=== PATIENT | female | born 1970 | race Caucasian/White ===

== ENCOUNTER 2017-12-14 13:05 | Emergency (ER) | payer MEDICAID ==
[2017-12-14 13:14] VITALS: TEMP 97.7
--- NOTE | 2017-12-14 13:50 | C.PDOC ---
History Of Present Illness 47-year-old female, presents to the emergency department with complaints of left -shoulder pain x1 week that is worse with movement. Patient notes that she carries heavy bags on that side and believes this caused the pain. No direct trauma or shortness of breath, chest pain, jaw pain or change in sensation. Patient states PMD gave her muscle relaxer and Naproxen that have not helped. No other complaints at this time. Time Seen by Provider: 12/14/17 13:32 Chief Complaint (Nursing): Upper Extremity Problem/Injury History Per: Patient History/Exam Limitations: no limitations Onset/Duration Of Symptoms: Days Current Symptoms Are (Timing): Still Present Past Medical History Reviewed: Historical Data, Nursing Documentation, Vital Signs Vital Signs: Last Vital Signs Temp 97.7 F 12/14/17 13:09 Pulse 81 12/14/17 15:13 Resp 16 12/14/17 15:13 BP 112/68 12/14/17 15:13 Pulse Ox 99 12/14/17 16:22 - Medical History PMH: Anxiety, Depression, Hypothyroidism Family History: States: No Known Family Hx - Social History Hx Alcohol Use: No Hx Substance Use: No - Immunization History Hx Tetanus Toxoid Vaccination: No Hx Influenza Vaccination: Yes (08/2017) Hx Pneumococcal Vaccination: No Review Of Systems Constitutional: Negative for: Fever Cardiovascular: Negative for: Chest Pain, Palpitations Respiratory: Negative for: Shortness of Breath Musculoskeletal: Positive for: Shoulder Pain Neurological: Negative for: Weakness, Numbness Physical Exam - Physical Exam Appears: Non-toxic, Other (uncomfortable) Skin: Warm, Dry, No Rash Head: Atraumatic, Normacephalic Eye(s): bilateral: Normal Inspection, EOMI Nose: Normal Oral Mucosa: Moist Neck: Normal, Normal ROM, Supple Lymphatic: Normal Exam Chest: Symmetrical Cardiovascular: Rhythm Regular Respiratory: Normal Breath Sounds, No Accessory Muscle Use Back: No CVA Tenderness, No Vertebral Tenderness Extremity: Tenderness, No Deformity, Other (Tenderness to palpation of left trapezius; FROM though pain aggravate passed 120 degrees) Extremity: Bilateral: Atraumatic, Normal Color And Temperature, Normal ROM Pulses: Left Radial: Normal, Right Radial: Normal Neurological/Psych: Oriented x3, Normal Speech, Normal Motor, Normal Sensation ED Course And Treatment ECG: Interpreted By Me, Viewed By Me O2 Sat by Pulse Oximetry: 99 (on RA) Pulse Ox Interpretation: Normal - Other Rad XR L shoulder X-Ray: Viewed By Me, Read By Radiologist Interpretation: No fracture or dislocation Progress Note: EKG and XR Shoulder ordered and reviewed. Patient treated with Toradol and Valium. On reassessment, patient is resting comfortably, and is in no acute distress. Patient was instructed to follow up with physician/clinic in 1-2 days for further evaluation. Disposition - Disposition Disposition: HOME/ ROUTINE Disposition Time: 14:37 Condition: STABLE Additional Instructions: Follow up with your primary medical doctor or clinic in 2-5 days for further evaluation. Take medications as prescribed. Return to the emergency department at any time if symptoms persist or worsen. Prescriptions: traMADol [Ultram] 50 mg PO Q8 #20 tab Instructions: Shoulder Pain (ED) Forms: [employer] [facility] ([place]) - Clinical Impression Clinical Impression: Shoulder pain - Scribe Statement The provider has reviewed the documentation as recorded by the Scribe (Candace Andrea) All medical record entries made by the Scribe were at my direction and personally dictated by me. I have reviewed the chart and agree that the record accurately reflects my personal performance of the history, physical exam, medical decision making, and the department course for this patient. I have also personally directed, reviewed, and agree with the discharge instructions and disposition.
[2017-12-14 15:14] VITALS: BP 112/68; PULSE 81; RESP 16
--- NOTE | 2017-12-14 15:22 | RAD ---
PROCEDURE: Radiographs of the Left Shoulder HISTORY: Pain. No history of recent/ related trauma provided COMPARISON: No prior. FINDINGS: BONES: Normal. No fracture. JOINTS: Normal. Glenohumeral and acromioclavicular joints preserved. No osteoarthritis. SOFT TISSUES: Normal. OTHER FINDINGS: None. IMPRESSION: Normal radiographs of the left shoulder.
[2017-12-14 16:05] VITALS: O2SAT 99
--- NOTE | 2017-12-15 22:22 | CARD ---
APPROVED REPORT EKG Measurement Heart [id number] <Conclusion> Normal sinus rhythm Slight nonspecific ST/T changes V1-V3. May be nomal variant foe age / sex. Abnormal ECG
== END 2017-12-14 15:13 | disposition home or self-care (01) ==
LOC: C.ER 13:05
DX: M25.512 Pain in left shoulder (principal)
CPT/HCPCS: 73030; 93005; 96372; 99283; J1885